=== PATIENT | male | born 1995 | race Caucasian/White ===

== ENCOUNTER 2017-05-20 06:14 | Emergency (ER) | payer MEDICAID, OTHER ==
[~2017-05-20] VITALS: Ht 180.3 cm; Wt 113.6 kg
[2017-05-20] MEDS ORDERED: PROPARACAINE HCL 0.5% 15 ML OPHTHALMIC SOLUTION OD ONE (08:30)
[2017-05-20] MEDS ORDERED: HYDROCODONE/ACETAMINOPHEN 5-325 MG TABLET PO ONE (09:00)
[2017-05-20] MEDS ORDERED: ONDANSETRON HCL 4 MG TABLET PO ONE (09:00)
[2017-05-20 10:30] VITALS: BP 124/81
== END 2017-05-20 10:38 | disposition home or self-care (01) ==
LOC: EMS 06:15
DX: S05.01XA Injury of conjunctiva and corneal abrasion without foreign body, right eye, initial encounter (principal); R51 Headache; W21.09XA Struck by other hit or thrown ball, initial encounter; Y93.89 Activity, other specified; Y99.8 Other external cause status; Y92.89 Other specified places as the place of occurrence of the external cause
CPT/HCPCS: 70450; 99284; Q0162

== ENCOUNTER 2018-03-01 00:44 | Emergency (ER) | payer OTHER ==
[~2018-03-01] VITALS: Ht 180.3 cm; Wt 118.0 kg
[2018-03-01] MEDS ORDERED: LIDOCAINE HCL 2%/EPI 1:200,000/PF 20 ML VIAL INJ ONE (02:00)
[2018-03-01] MEDS ORDERED: PERTUSS(ACELL),DIPH,TET VAC/PF 0.5 ML VIAL IM ONE (02:30)
[2018-03-01 02:45] VITALS: BP 119/75
[2018-03-01] MEDS ORDERED: IBUP-1506 PO (09:39)
== END 2018-03-01 02:49 | disposition home or self-care (01) ==
LOC: EMS 00:45
DX: S61.411A Laceration without foreign body of right hand, initial encounter (principal); Y08.89XA Assault by other specified means, initial encounter; Y93.89 Activity, other specified; Y92.89 Other specified places as the place of occurrence of the external cause; Y99.8 Other external cause status
CPT/HCPCS: 12002; 73130; 90471; 90715; 99284; X6474

== ENCOUNTER 2018-03-01 09:35 | Emergency (ER) | payer OTHER ==
[~2018-03-01] VITALS: Ht 180.3 cm; Wt 113.5 kg
[2018-03-01] MEDS ORDERED: IBUP-1506 PO (09:39)
[2018-03-01 10:40] VITALS: BP 119/77
[2018-03-01] MEDS ORDERED: BACITRACIN 0.9 GM PACKET OINTMENT TP ONE (11:00)
[2018-03-01] MEDS ORDERED: OxyCODONE HCL/ACETAMINOPHEN 5-325 MG TABLET PO ONE (11:00)
== END 2018-03-01 11:33 | disposition home or self-care (01) ==
LOC: EMS 09:35
DX: S61.411D Laceration without foreign body of right hand, subsequent encounter (principal); Y08.89XD Assault by other specified means, subsequent encounter
CPT/HCPCS: 99283

== ENCOUNTER 2023-11-27 14:18 | Emergency (ER) | payer OTHER ==
[~2023-11-27] VITALS: Ht 185.4 cm; Wt 125.0 kg
[~2023-11-27 14:18] MED LIST: IBUP-1506 PO
[2023-11-27 14:29] VITALS: TEMP 98
[2023-11-27] MEDS ORDERED: IBUPROFEN 600 MG TABLET PO ONE (14:45)
[2023-11-27] MEDS ORDERED: ACETAMINOPHEN 500 MG TABLET PO ONE (14:45)
[2023-11-27 16:10] VITALS: BP 133/75; PULSE 80; RESP 18
== END 2023-11-27 17:05 | disposition home or self-care (01) ==
LOC: EDUNIT# 14:18 → EMS 14:18
DX: S60.221A Contusion of right hand, initial encounter (principal); X58.XXXA Exposure to other specified factors, initial encounter; Y93.89 Activity, other specified; Y92.89 Other specified places as the place of occurrence of the external cause; Y99.0 Civilian activity done for income or pay
CPT/HCPCS: 99283